=== PATIENT | female | born 1960 | race Caucasian/White ===

== ENCOUNTER → 2020-10-14 13:30 | Outpatient (CLI) | payer OTHER, SELFPAY ==
--- NOTE | ~2020-10-14 | MM_ITS ---
EXAMINATION: MM screening anastacia BI w joaquín HISTORY: Screening mammogram TECHNIQUE: Craniocaudal and mediolateral oblique 3-D tomosynthesis images were obtained and synthetic 2-D images were generated. CAD analysis was submitted and interpreted. COMPARISON: 09/27/2019, 05/24/2018, 05/10/2017 bilateral digital screening mammogram examinations BREAST PARENCHYMAL COMPOSITION: There are scattered areas of fibroglandular density. FINDINGS: There is no evidence of suspicious mass, calcification, or architectural distortion to sugg est malignancy in either breast. There has been no suspicious interval change. IMPRESSION: 1. No mammographic evidence of malignancy. 2. Recommend routine screening mammography in one year. BI-RADS Category 1: Negative Reviewed, dictated and finalized at location B. RACT PROCESSOR
== END ==
PROVIDERS: PCP Family Medicine; Visit Provider Family Medicine
DX: Z12.31 Encounter for screening mammogram for malignant neoplasm of breast (principal)
CPT/HCPCS: 77063; 77067

== ENCOUNTER 2021-03-31 13:23 | Emergency (ER) | payer OTHER, SELFPAY ==
--- NOTE | ~2021-03-31 | XR_ITS ---
EXAMINATION: XR knee RT 3V DATE: 03/31/2021 14:09 INDICATION: Right knee pain TECHNIQUE: Three views of the right knee were obtained. COMPARISON: None. FINDINGS: Alignment is normal. No fracture or osteochondral lesion. There is mild tricompartmental os teoarthritis characterized by tiny marginal osteophytes. No joint effusion/synovitis. Soft tissues a re unremarkable. IMPRESSION: 1. No acute osseous abnormality. Reviewed, dictated and finalized at location A.
--- NOTE | ~2021-03-31 | XR_ITS ---
EXAMINATION: XR shoulder RT min 2V INDICATION: Right shoulder pain, initial encounter TECHNIQUE: Four views of the right shoulder are submitted. COMPARISON: None FINDINGS: There is an acute, traumatic, closed, comminuted fracture of the distal clavicle. The fract ure does not appear to extend to the acromioclavicular joint. The distal fracture fragment is caudall y displaced by approximately 12 mm. There appears to be an acute anterior third rib fracture. Glenohu meral and acromioclavicular joint spaces are normal. Soft tissues are unremarkable. IMPRESSION: 1. Comminuted fracture of the distal clavicle with 12 mm of caudal displacement of the distal fractur e fragments. 2. Likely right third rib fracture. Reviewed, dictated and finalized at location A. IMPRESSION: 1. Comminuted fracture of the distal clavicle with 12 mm of caudal displacement of the distal fracture fragments. 2. Likely right third rib fracture.
--- NOTE | ~2021-03-31 | XR_ITS ---
EXAMINATION: XR ribs RT 2V w CXR 2V INDICATION: Right shoulder and chest pain after fall TECHNIQUE: PA and lateral views of the chest and 3 views of the right ribs were obtained. COMPARISON: None. FINDINGS: There is a comminuted fracture of the distal right clavicle. There are minimally displaced fractures of the right third through sixth ribs. There is no pleural effusion or pneumothorax. The olya ngs are free of acute opacities. The cardiomediastinal silhouette is normal. There is mild thoracic s pondylosis. IMPRESSION: 1. Acute fractures of the right third through sixth ribs. 2. Comminuted fracture of the distal right clavicle. 3. No acute cardiopulmonary abnormality. Reviewed, dictated and finalized at location A.
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
[2021-03-31] MEDS: diazePAM (*CRX) 5 MG TABLET PO (14:50)
[2021-03-31 15:30] VITALS: BP 138/78; PULSE 82; RESP 18; TEMP 36.8; O2SAT 98
== END 2021-03-31 15:30 | disposition home or self-care (01) ==
PROVIDERS: Emergency Provider Emergency Medicine; PCP Family Medicine
DX: S42.033A Displaced fracture of lateral end of unspecified clavicle, initial encounter for closed fracture (principal); S22.31XA Fracture of one rib, right side, initial encounter for closed fracture; S80.211A Abrasion, right knee, initial encounter; V19.88XA Pedal cyclist (driver) (passenger) injured in other specified transport accidents, initial encounter
CPT/HCPCS: 71046; 71100; 73030; 73562; 96365; 99284; A4565; A9270; J0131

== ENCOUNTER 2021-06-21 07:44 | Outpatient (CLI) | payer OTHER, SELFPAY ==
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
[2021-06-23 12:44] VITALS: BMI 25.9
== END 2021-06-22 13:12 | disposition home or self-care (01) ==
LOC: ANHCSM 07:47
PROVIDERS: PCP Family Medicine; Visit Provider Family Medicine
DX: G47.31 Primary central sleep apnea (principal); I48.91 Unspecified atrial fibrillation
CPT/HCPCS: 95800

== ENCOUNTER 2021-07-07 16:00 | Outpatient (RCR) | payer OTHER, SELFPAY ==
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
--- NOTE | 2021-07-07 17:04 | PTOPEVAL ---
PHYSICAL THERAPY DISCHARGE Thank you for referring Ashli Arzola to [facility].? The patient has completed 10 visits for the dx of right clavicle fx/ORIF. The patient has met her goals. DC PT. Please review, sign, date and return this plan of care LEO. I agree with and certify the following plan of care. Referring Physician Date Referring Provider: Dr. Kyle Henning *PT Outpatient Discharge Start: 05/20/21 12:35 Freq: Status: Active Protocol: Document 07/07/21 16:49 MLV (Rec: 07/07/21 17:04 MLV [id number]) Therapy Assessment Status Assessment Status Discharge Evaluation Information Problem Diagnosis right distal clavicle fx w/ ORIF Onset March Cause fall Additional Evaluation Detail The patient feels she has progressed well and has returned to work w/o limits. The patient reports some soreness due to just returning to work but understands how to modify her exercises and use TENS/ice as needed to control symptoms. The patient reports doing all of her normal daily activities using the right arm w/o limits unless the task requires heavier lifting. The patient feels she can progress her weights with the HEP w/o difficulty. Pain Assessment Timing of Pain Assessment Timing of Pain Assessment Assessment Pain Scale Pain Scale Used Numeric (1 - 10) Self Report Pain Assessment Right Arm(s) Reported Pain Level 3 Pain Description Aching Pain Score Pain Score 3: Self Report Interventions Used Interventions Used By Clinicians Electrical Stimulation, Exercise,Ice,Manual Therapy Techniques Pain Relief Interventions Used By Exercise,Ice,Inactivity/Rest, Patient Position Change,TENS Upper Extremity Range of Motion General Upper Extremity Range of Motion Reason Not Measured WNL/Left,WNL/Right Gross Upper Extremity Range of Motion motions symmetrical and w/o Comments labor/pain through motion Upper Extremity Muscle Strength Testing General Upper Extremity Strength Reason Not Measured WNL/Left Gross Upper Extremity Strength Comments pt has progressed right shoulder strength functionally,
== END 2021-07-09 11:22 | disposition home or self-care (01) ==
LOC: ANHPT 16:00
PROVIDERS: PCP Family Medicine
DX: Z47.89 Encounter for other orthopedic aftercare (principal)
CPT/HCPCS: 97014; 97110; 97140; 97162; G0283

== ENCOUNTER 2021-07-09 08:00 | Outpatient (CLI) | payer OTHER, SELFPAY ==
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
[2021-07-13 15:08] VITALS: BMI 26.5
== END 2021-07-10 09:08 | disposition home or self-care (01) ==
LOC: ANHCSM 08:01
PROVIDERS: PCP Family Medicine; Visit Provider Physician Assistant Medical
DX: G47.31 Primary central sleep apnea (principal); Z68.26 Body mass index [BMI] 26.0-26.9, adult
CPT/HCPCS: 95811

== ENCOUNTER → 2021-10-27 16:04 | Outpatient (CLI) | payer OTHER, SELFPAY ==
--- NOTE | ~2021-10-27 | MM_ITS ---
EXAMINATION: MM screening anastacia BI w joaquín HISTORY: Screening TECHNIQUE: Craniocaudal and mediolateral oblique 3-D tomosynthesis images were obtained and synthetic 2-D images were generated. CAD analysis was submitted and interpreted. COMPARISON: Comparison to multiple prior studies sequentially, with oldest reviewed study dated 06/23. BREAST PARENCHYMAL COMPOSITION: There are scattered areas of fibroglandular density. FINDINGS: There is no evidence of suspicious mass, calcification, or architectural distortion to sugg est malignancy in either breast. There has been no suspicious interval change. IMPRESSION: 1. No mammographic evidence of malignancy. 2. Recommend routine screening mammography in one year. BI-RADS Category 1: Negative Reviewed, dictated and finalized at location A. [facility] DELIVERY
== END ==
PROVIDERS: PCP Family Medicine; Visit Provider Family Medicine
DX: Z12.31 Encounter for screening mammogram for malignant neoplasm of breast (principal)
CPT/HCPCS: 77063; 77067

== ENCOUNTER 2021-11-26 08:13 | Outpatient (CLI) | payer OTHER, SELFPAY ==
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
[2021-11-28 12:48] VITALS: BMI 26.8
== END 2021-11-27 07:01 | disposition home or self-care (01) ==
LOC: ANHCSM 08:14
PROVIDERS: PCP Family Medicine; Visit Provider Internal Medicine Critical Care Medicine
DX: G47.31 Primary central sleep apnea (principal)
CPT/HCPCS: 95811

== ENCOUNTER → 2022-11-02 08:56 | Outpatient (CLI) | payer OTHER, SELFPAY ==
--- NOTE | ~2022-11-02 | MM_ITS ---
EXAMINATION: MM screening anastacia BI w joaquín HISTORY: Screening mammogram TECHNIQUE: Craniocaudal and mediolateral oblique 3-D tomosynthesis images were obtained and synthetic 2-D images were generated. CAD analysis was submitted and interpreted. COMPARISON: 10/27/2021, 10/14/2020, 09/27/2019 bilateral screening mammogram examinations BREAST PARENCHYMAL COMPOSITION: There are scattered areas of fibroglandular density. FINDINGS: Minimal fibroglandular asymmetry, stable since 09/27/2019. There is no evidence of suspicio us mass, calcification, or architectural distortion to suggest malignancy in either breast. There has been no suspicious interval change. IMPRESSION: 1. No mammographic evidence of malignancy. 2. Recommend routine screening mammography in one year. BI-RADS Category 1: Negative Reviewed, dictated and finalized at location A. ORK SECURITY ADMINISTRATOR
== END ==
PROVIDERS: PCP Family Medicine; Visit Provider Family Medicine
DX: Z12.31 Encounter for screening mammogram for malignant neoplasm of breast (principal)
CPT/HCPCS: 77063; 77067

== ENCOUNTER 2023-04-05 11:15 | Outpatient (RCR) | payer OTHER, SELFPAY ==
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
== END 2023-04-12 13:58 | disposition home or self-care (01) ==
LOC: ANHPT 11:15
DX: M79.18 Myalgia, other site (principal); M75.101 Unspecified rotator cuff tear or rupture of right shoulder, not specified as traumatic
CPT/HCPCS: 97110; 97140; 97161

== ENCOUNTER 2023-08-21 13:48 | Emergency (ER) | payer OTHER, SELFPAY ==
--- NOTE | ~2023-08-21 | XR_ITS ---
EXAMINATION: XR shoulder LT min 2V DATE: 08/21/2023 14:22 INDICATION: Left shoulder pain. Fall. TECHNIQUE: 4 views of left shoulder were obtained. COMPARISON: None. FINDINGS: Bone alignment is normal. No acute fracture. There is an old healed fracture of left fifth rib. There is mild osteoarthritis of acromioclavicular joint. Glenoid humeral joint is normal. IMPRESSION: 1. Mild osteoarthritis of acromioclavicular joint. Reviewed, dictated and finalized at location A. 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
--- NOTE | ~2023-08-21 | XR_ITS ---
EXAMINATION: XR ribs LT 2V w CXR 2V DATE: 08/21/2023 14:19 INDICATION: Left rib pain. Fall. TECHNIQUE: Frontal and lateral views of the chest and 2 views on 3 radiographs of the left ribs were obtained. COMPARISON: Chest 2 views 03/31/2021 FINDINGS: CHEST TWO VIEWS: There is no pneumonia, pleural effusion, or pneumothorax. The heart size is normal. There is plate and screw fixation of right clavicle. LEFT RIBS: There is a fracture of left fifth rib. IMPRESSION: 1. Fracture of left fifth rib. Reviewed, dictated and finalized at location A. 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
--- NOTE | 2023-08-21 13:51 | ED.FALL ---
HPI - Fall General Chief Complaint: Extremity Injury, Upper Stated Complaint: Fall; Shoulder/Knee pain Time Seen by Provider: 08/21/23 13:50 Source: patient Mode of arrival: ambulatory Limitations: no limitations History of Present Illness HPI Narrative: Ashli is a 63-year-old female patient presenting to the clinic today with complaints of left shoulder, left clavicle, left ribs, bilateral knee, abrasion to the bridge of the nose with bruising, and abrasion to the right side of the face. She reports she was gardening and fell down a slope at her home and landed on the right side. Denies hitting her head or any loss of consciousness. Denies any neck pain. Related Data Home Medications Medication Instructions Recorded Confirmed aspirin 81 mg tablet,delayed 81 mg PO DAILY 02/09/22 08/21/23 release (Adult Low Dose Aspirin) metoprolol tartrate 25 mg tablet 12.5 mg PO DAILY 10/26/22 08/21/23 apixaban 5 mg tablet (Eliquis) 5 mg PO DAILY 08/21/23 08/21/23 propafenone 225 mg 225 mg PO DIRECTED 08/21/23 08/21/23 capsule,extended release 12 hr Allergies Allergy/AdvReac Type Severity Reaction Status Date / Time tramadol Allergy Unknown unknown Verified 08/21/23 13:59 MEDS BLUE DYE Allergy Mild Anaphylactic Uncoded 08/21/23 13:59 Shock Contrast Media Allergy Unknown Siezure Uncoded 08/21/23 13:59 Review of Systems Review of Systems: Pertinent positives per HPI. Patient denies any fever, chills, rash, headache, visual changes, dizziness, cough, runny nose, sore throat, shortness of breath, chest pain, palpitations, nausea, vomiting, diarrhea, constipation, abdominal pain, or any urinary issues. [facility] Past Medical History Medical History Arthralgia Atrial fibrillation Central sleep apnea CPAP Depression Fx clavicle Overweight (BMI 25.0-29.9) Vulvodynia Surgical History Surgical History H/O total hysterectomy with bilateral salpingo-oophorectomy (BSO) History of shoulder surgery S/P lumbar laminectomy S/P T&A (status post tonsillectomy and adenoidectomy) Family History Family History Mother Hypertension Family history of gastrointestinal disorder Family history of elevated blood lipids Father Family history of gastrointestinal disorder Family history of osteoarthritis Family history of anemia Family history of arthritis Sibling Family history of liver disease Grandparent Cerebrovascular accident Family history of malignant neoplasm of breast Other Depression Social History Social History Smoking status: Never smoker Alcohol intake: current Substance use: never Lack of Transportation: No Lack of Food: Never True Current Housing: I Have Housing Concerned About Future Housing: No Difficulty Paying Gas/Electric Bills: No Difficulty Paying for Meds: No Currently Unemployed: No Education: Master's Degree or Higher Difficulty w/ Childcare or Family Care: No Comments At the time of my signature, I reviewed and agree with the nursing past medical, surgical, social, and family history. There is no relevant family history pertinent to the patient complaint. Exam Narrative: General: Well-developed, well nourished, in no apparent distress Head: Normocephalic, bruising/swelling to the right side of the nasal bridge with abrasion across the bridge of the nose, mild tenderness, no epistaxis, approximately 50% occlusion of right nare per patient, abrasion to the right cheek Cardio: Regular rate and rhythm, s1 and s2 normal, no murmur appreciated. Resp: Clear to auscultation bilaterally, no rhonchi, rales, wheezing or rubs. Musculoskeletal: No deformity, tender to palpation to the left lateral anterior ribs just below the breast, n
[2023-08-21 13:59] VITALS: BP 98/66; PULSE 62; RESP 16; TEMP 36.3; O2SAT 100
[2023-08-21 14:03] VITALS: BP 98/66; PULSE 62; RESP 16; TEMP 36.3; O2SAT 100
== END 2023-08-21 15:00 | disposition home or self-care (01) ==
PROVIDERS: Emergency Provider Nurse Practitioner Family; PCP Family Medicine
DX: S22.32XA Fracture of one rib, left side, initial encounter for closed fracture (principal); S46.912A Strain of unspecified muscle, fascia and tendon at shoulder and upper arm level, left arm, initial encounter; S80.01XA Contusion of right knee, initial encounter; S00.31XA Abrasion of nose, initial encounter; S00.81XA Abrasion of other part of head, initial encounter; W10.2XXA Fall (on)(from) incline, initial encounter; Y93.H2 Activity, gardening and landscaping; Z79.82 Long term (current) use of aspirin; Z79.01 Long term (current) use of anticoagulants; I48.91 Unspecified atrial fibrillation; G47.31 Primary central sleep apnea; F32.A Depression, unspecified
CPT/HCPCS: 71046; 71100; 73030; 99214; G0463

== ENCOUNTER 2024-02-29 10:35 | Outpatient (CLI) | payer OTHER, SELFPAY ==
--- NOTE | ~2024-02-29 | MM_ITS ---
EXAMINATION: MM screening anastacia BI w joaquín HISTORY: Screening TECHNIQUE: Craniocaudal and mediolateral oblique 3-D tomosynthesis images were obtained and synthetic 2-D images were generated. CAD analysis was submitted and interpreted. COMPARISON: Comparison to multiple prior studies sequentially, with oldest reviewed study dated 11/2016. BREAST PARENCHYMAL COMPOSITION: 05/10/2017 FINDINGS: There is no evidence of suspicious mass, calcification, or architectural distortion to sugg est malignancy in either breast. There has been no suspicious interval change. IMPRESSION: 1. No mammographic evidence of malignancy. 2. Recommend routine screening mammography in one year. BI-RADS Category 1: Negative Reviewed, dictated and finalized at location A.
--- NOTE | ~2024-02-29 | DEXA_ITS ---
Bone Density Report Name: DIONI MERCEDES Age: 64 Sex: Female Ethnicity: White Date of : 1960 Indication: postmenopausal; screening for osteoporosis; history of glucocorticoids; prior fracture; hysterectomy; Referring Provider: MORE PLASCENCIA Study: Bone densitometry was performed. Exam Date: February 29, 2024 Accession number: [id number] Bone Density: Region BMD T-score Z-score Classification AP Spine (L1-L4) 0.773 -2.5 -0.8 Osteoporosis Femoral Neck (Left) 0.608 -2.2 -0.7 Osteopenia Total Hip (Left) 0.763 -1.5 -0.3 Osteopenia Femoral Neck (Right) 0.640 -1.9 -0.4 Osteopenia Total Hip (Right) 0.756 -1.5 -0.4 Osteopenia Total Hip Mean 0.760 -1.5 -0.4 Osteopenia World Health Organization criteria for BMD impression classify patients as: Normal (T-score at or above -1.0), Osteopenia (T-score between -1.0 and -2.5), or Osteoporosis (T-score at or below -2.5). 10-year Fracture Risk: FRAX not reported because: Some T-score for Spine Total or Hip Total or Femoral Neck at or below -2.5 Clinical Information Provided by Patient: Has had a low trauma fracture Has taken Glucocorticoids Has used the following medications: Vitamin D, Calcium Has the following medical conditions: Hysterectomy, HX IDIOPATHIC CHRONIC URTICARIA -2005 Patient maximum height was 64.5 Menopause Age: 53 No regular weight bearing exercise Onset of menses at age 12 Number of children 0 Impression: The patient has established osteoporosis, based on the Total Spine T-score and the existence of a prior fracture. The patient has risk factors, including: previous fracture, history of glucocorticoid therapy. Discussion: HIGH RISK OF FRACTURE. BONE DENSITY IS UNDESIRABLY LOW AT ONE OR MORE SKELETAL SITES, CONSISTENT WITH POSTMENOPAUSAL OSTEOPOROSIS. This patient's lowest T-score, in a patient who has previously fractured, meets the World Health Organization's (WHO) criteria for severe osteoporosis. In untreated patients, the risk of osteoporotic fracture increases approximately two-fold for each 1.0 SD decrease in T-score. Low bone density is not the only risk factor for fracture; also consider factors such as patient's age, frailty or poor health, risk of falling, risk of injury, previous osteoporotic fracture, family history of osteoporosis, cigarette smoking, low body weight, etc. Not everyone with low bone mineral density has osteoporosis; osteomalacia and other metabolic bone disorders should also be considered. Patients who have osteoporosis should be evaluated for specific diseases and conditions (secondary causes) that may cause or contribute to bone loss. The [place] [employer] Endocrinologists (AACE) and National Osteoporosis Foundation (NOF) recommend pharmacologic intervention for all postmenopausal women whose T-score is in this range. The patient should follow a healthful lifestyle (good nutrition with
== END 2024-02-29 10:36 ==
PROVIDERS: PCP Family Medicine; Visit Provider Family Medicine
DX: Z12.31 Encounter for screening mammogram for malignant neoplasm of breast (principal); Z78.0 Asymptomatic menopausal state; M81.0 Age-related osteoporosis without current pathological fracture; M85.852 Other specified disorders of bone density and structure, left thigh; M85.851 Other specified disorders of bone density and structure, right thigh
CPT/HCPCS: 77063; 77067; 77080

== ENCOUNTER 2024-05-01 14:49 | Outpatient (CLI) | payer OTHER, SELFPAY ==
--- NOTE | ~2024-05-01 | MR_ITS ---
EXAMINATION: MR brain IAC wo con DATE: 05/01/2024 15:42 INDICATION: Ataxia TECHNIQUE: Magnetic resonance imaging (MRI) of the brain and brainstem was performed without intraven ous contrast. Sequences included sagittal and axial T1-weighted FSE, axial diffusion-weighted FS EPI, axial T2*-weighted GRE, axial T2-weighted FLAIR Propeller, axial T2-weighted Propeller, small field- of-view coronal FIESTA, small [id number] coronal T1-weighted FSE, and small [id number]-czib axial T1 -weighted SPGR. Apparent diffusion coefficient (ADC) maps were created. COMPARISON: None. FINDINGS: There are no areas of restricted diffusion to suggest acute infarction. No intracranial hemorrhage or abnormal intracranial mass lesion. There are no intraparenchymal signal abnormalities seen on the ot her pulse sequences. Symmetric prominence of the sulci consistent with mild age-appropriate diffuse c erebral volume loss. The ventricles are symmetric and normal in size. There are no abnormal extra-axi al fluid collections. Normal seventh/eighth cranial nerve complexes. No cerebellopontine angles mass es. No evidence of mastoid or middle ear fluid. The left vertebral artery is not definitively identi fied either absent or diminutive. Flow voids are seen in the remaining central cerebral arteries on t he T2-weighted sequences consistent with their expected patency. Mild mucosal thickening in the bilat eral ethmoid sinuses. Visualized orbits and soft tissues are unremarkable. IMPRESSION: 1. Normal aging brain. 2. Left vertebral artery is not visualized, either diminutive or developmentally absent. Reviewed, dictated and finalized at location A. IMPRESSION: 1. Normal aging brain. 2. Left vertebral artery is not visualized, either diminutive or developmentall y absent.
== END 2024-05-01 14:50 ==
PROVIDERS: PCP Family Medicine; Visit Provider Family Medicine
DX: R27.0 Ataxia, unspecified (principal)
CPT/HCPCS: 70551

== ENCOUNTER 2025-03-04 12:20 | Outpatient (CLI) | payer MEDICARE, OTHER, SELFPAY ==
--- NOTE | ~2025-03-04 | MM_ITS ---
EXAMINATION: MM screening [facility] BI w joaquín HISTORY: Screening TECHNIQUE: Craniocaudal and mediolateral oblique 3-D tomosynthesis images were obtained and synthetic 2-D images were generated. CAD analysis was submitted and interpreted. COMPARISON: Comparison to multiple prior studies sequentially, with oldest reviewed study dated 05/24. BREAST PARENCHYMAL COMPOSITION: Not dense: There are scattered areas of fibroglandular density. FINDINGS: There is no evidence of suspicious mass, calcification, or architectural distortion to sugg est malignancy in either breast. There has been no suspicious interval change. IMPRESSION: 1. No mammographic evidence of malignancy. 2. Recommend routine screening mammography in one year. BI-RADS Category 1: Negative Reviewed, dictated and finalized at location A.
== END 2025-03-04 12:21 | disposition home or self-care (01) ==
LOC: MICIMG 12:23
PROVIDERS: PCP Family Medicine; Visit Provider Family Medicine
DX: Z12.31 Encounter for screening mammogram for malignant neoplasm of breast (principal)
CPT/HCPCS: 77063; 77067